=== PATIENT | male | born 1995 ===

== ENCOUNTER 2017-01-31 21:01 | Emergency (ER) | payer SELFPAY ==
[~2017-01-31] VITALS: Ht 188 cm; Wt 79.5 kg
[2017-01-31 21:04] VITALS: BP 131/92
== END 2017-01-31 21:44 | disposition left against medical advice (07) ==
LOC: EMS 21:04
DX: R51 Headache (principal); Z53.21 Procedure and treatment not carried out due to patient leaving prior to being seen by health care provider